=== PATIENT | male | born 1975 | race Caucasian/White ===

== ENCOUNTER → 2017-06-03 | Outpatient (CLI) | payer OTHER ==
[~2017-06-03] MED LIST: HYDROCODON-ACE1 EAC7 PO; HYDROCODONE-AP1 EAC6 PO; IBUPROFEN 800800 M1 PO; MOBIC15 MG PO; NABUMETONE PO; PIROXICAM20 MG PO
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
== END ==
LOC: M.PC 02:51
DX: M47.896 Other spondylosis, lumbar region (principal); I10 Essential (primary) hypertension; F11.20 Opioid dependence, uncomplicated

== ENCOUNTER → 2017-09-02 | Outpatient (CLI) | payer OTHER ==
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
== END ==
LOC: M.PC 00:32
DX: M47.27 Other spondylosis with radiculopathy, lumbosacral region (principal); G89.4 Chronic pain syndrome; M54.5 Low back pain; M25.522 Pain in left elbow; M25.521 Pain in right elbow

== ENCOUNTER → 2017-12-11 | Outpatient (CLI) | payer OTHER ==
--- NOTE | 2018-01-05 10:00 | PAINCON ---
[address] [address] PAIN MANAGEMENT CONSULTATION Name: SAUL PRITCHARD [facility] [id number] Admission: 12/11/17 Attend Phys: Brett Nicole MD Discharge: Date of : 77 Report #: [id number] THIS REPORT FOR: //name// CC: Chelsie Curry [employer] WORK[employer] Citlalli Nicole DATE OF SERVICE: 12/11/2017 FOLLOWUP COMPLAINT: Here for medications. Things are going really well. FOLLOWUP HISTORY: The patient is a 42-year-old gentleman who has been followed in the pain clinic. As you recall, he has a history of low back pain. He has undergone fusion of his back in the thoracolumbar area in 1997. 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 Finds that medication of hydrocodone and nonsteroidals are helpful. He is able to stay gainfully employed. He does not have any problems with his medication. He states that his work is somewhat hard and exhausting. He would like to continue with his medications. He has some pain that involves his elbows bilaterally. Notes that his pain score varies escorted to how much and how difficult job is that he is working on. He rates his pain as 2/10 at this point. He has had no complication from the medications. He is not having any GI complaints. He does not have any problems with confusion or any problems with his sensorium. He is able to think clearly. Feels that the medications definitely are helpful enabling him to remain gainfully employed. He keeps his medications in a guarded area. He is aware that opioid medications can be problematic and has seen the information in the media. Aware that narcotics can be addictive. He is aware that they can become less effective over a period of time secondary to tolerance. He would like to continue with the medications and has returned for renewal of his medications. ALLERGIES: No known drug allergies. CURRENT MEDICATIONS: Hydrocodone 5/325 one p.o. t.i.d., Mobic 15 mg daily. Medications used in the past ibuprofen/nabumetone 500 mg t.i.d. in the past. PAIN CLINIC ASSESSMENT/PQRS: 1. The patient has some osteoarthritic changes in his lower back. 2. Height 6 feet, weight 189 pounds, BMI is 25.7. 3. Vital signs: Blood pressure 122/82, heart rate 73, respiratory rate 16, room air saturation 97%, temperature 98.3. 4. Pain score 2/10. 5. Fall. The patient has not fallen in the last 3 months. 6. Blood thinner. The patient is not on a blood thinning medication. 7. History of hypertension. The patient is not being treated for hypertension. 8. Opiate therapy greater than 6 weeks. The patient gets his medication from one source[place] [address] PAIN MANAGEMENT CONSULTATION Name: SAUL PRITCHARD Room: [facility]#: [id number] Admission: 12/11/17 Attend Phys: Brett Nicole MD Discharge: Date of : 77 Report #: [id number] 9. Risk assessment tool, low risk for opioid use. 10. Functional assessment tool. 11. Recreational drug use. The patient denies use of recreational drugs. 12. Tobacco: The patient denies use of tobacco. 13. Alcohol: The patient denies use of alcoholic beverages. PHYSICAL EXAMINATION: GENERAL: The patient is a well-developed, well-nourished white male. Appears his stated age. He is alert and oriented x 3. His affect is appropriate. Speech is fluent. HEENT: Normocephalic, atraumatic. Extraocular eye muscles intact. Hearing is within normal limits. Mucous membranes are moist. Sclerae nonicteric. NECK: Without JVD, adenopathy or bruit. Muscle bulk is symmetric with upper muscle strength is judged to be 5/5. The patient has some soreness involving his elbows bilaterally. MUSCULOSKELETAL: Without significant scoliosis, kyphosis or lordosis. The patient has some low back pain and discomfort. He has muscle strength is judged to be 5/5 for the major muscle groups. Well-healed scar in the back area. IMPRESSION: 1. Lumbosacral spondylosis. 2. Chronic axial back pain. 3. Bilateral shoulder soreness/elbow pain. 4. History of right lateral epicondyle dose. 5. Chronic intractable pain treated with complex medical management. RECOMMENDATIONS: We discussed treatment options with the patient. Risks and benefits of opioid medication were again reviewed. The patient feels like the medications are working well. We reminded him of the possible complications of use of nonsteroidal anti-inflammatory medications. They can cause GI problems. Recommend the patient uses medication for as long as possible, but as brief time is possible. He will stop his medications if he notes some GI problems or complications. He will continue to keep his medications in a guarded area. He will call us if he has any problems with the medications. We would like to thank you for letting us participate in his care. We hope he continues to improve. A script for his medications of hydrocodone 5/325 one p.o. q. total of 90 and Meloxicam have been rewritten. <ELECTRONICALLY SIGNED> By: Brett Nicole MD 01/05/18 1000 [id number] 1746N. Shay Nicole MD /[facility]quelyn
== END ==
LOC: M.PC 01:46
DX: M47.897 Other spondylosis, lumbosacral region (principal); M79.629 Pain in unspecified upper arm; M25.522 Pain in left elbow; M25.521 Pain in right elbow; Z79.899 Other long term (current) drug therapy

== ENCOUNTER → 2018-03-05 | Outpatient (CLI) | payer OTHER ==
--- NOTE | ~2018-03-05 | PAINCON ---
[address] [address] PAIN MANAGEMENT CONSULTATION Name: SAUL PRITCHARD [facility] [id number] Admission: 03/05/18 Attend Phys: Brett Nicole MD Discharge: Date of : 77 Report #: [id number] THIS REPORT FOR: //name// CC: Chelsie Sullivan DATE OF SERVICE: 03/05/2018 FOLLOWUP: Here for medication renewal. HISTORY: The patient is a 42-year-old gentleman who has been followed in the pain clinic. 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 Has had some problems with his back in the past. He has undergone fusion of his back in the thoracolumbar area in 1997. 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 Finds his medications of hydrocodone, nonsteroidal medications, continue to be helpful. He left his truck in a work area. He did not have access to his medications for a few days. He did take couple of his 's hydrocodone 10/325 medication and found that they were more beneficial. He was wondering whether or not an increase in his medications from 5 mg p.o. t.i.d. to 10 mg p.o. t.i.d. would be an option. Denies any GI problems. Notes does not have any problems with his sensorium and is able to clearly. 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 States that he can do this easily without problem. He is aware of the problems with the opioid epidemic. Feels that overall his medications are helpful, but entertained the thought that may be an increase his medications might be beneficial. ALLERGIES: No known drug allergies. CURRENT MEDICATIONS: Hydrocodone 5/325 mg one p.o. t.i.d., Mobic 15 mg daily. PAIN CLINIC ASSESSMENT/PQRS: 1. The patient has some osteoarthritic changes in his lower back. 2. Height 6 feet, weight 195 pounds, BMI is 26.4. 3. Vital Signs: Blood pressure 142/81, heart rate 81, respiratory rate 16, room air saturation 97%. 4. Temperature 98.5. 5. Pain intensity 05/31. 6. Fall history: The patient has not fallen in the last 3 months. 7. Blood thinner. The patient is not on a blood thinning medication. 8. Hypertension. The patient has not been treated for hypertension. 9. Opioid greater than 6 weeks. The patient receives this medication from one source, the pain clinic. 10. Risk assessment tool, low for opioid use. 11. Functional assessment tool. 12. Recreational drug use. The patient [place] [address] PAIN MANAGEMENT CONSULTATION Name: SAUL PRITCHARD Room: [facility]#: [id number] Admission: 03/05/18 Attend Phys: Brett Nicole MD Discharge: Date of : 77 Report #: [id number] 13. Tobacco: The patient denies use of tobacco. 14. Alcohol: The patient uses alcoholic beverages rarely and weekly. PHYSICAL EXAMINATION: GENERAL: The patient is a well-developed, well-nourished white male. Appears his stated age. He is alert and oriented x 3. Affect is appropriate. Speech is slow. HEENT: Normocephalic, atraumatic. Extraocular eye muscles intact. Sclerae nonicteric. Mucous membranes are moist. NECK: Without adenopathy or JVD. EXTREMITIES: Muscle bulk and symmetry in the upper extremity is judged to be 5/5 for the major muscle groups. Has some soreness in the elbow area. MUSCULOSKELETAL: Without significant scoliosis, kyphosis or lordosis. The patient's muscle strength in the lower back is judged to be 5/5 for the major muscle groups. A well-healed scar in back. Has pain and discomfort, which is involving the low back area. IMPRESSION: 1. Lumbosacral spondylosis. 2. Chronic axial back pain. 3. Bilateral shoulder soreness with elbow pain. 4. History of right lateral epicondyle pain. 5. Chronic intractable pain involving use of complex medical management. RECOMMENDATIONS: We discussed treatment option with the patient. We again reviewed the patient's regimen with him. We discussed the use of opioid medications. We have discussed the problems with opioid medications, which could lead to addiction as well as less effectiveness secondary to chronic use because of development of tolerance. We explained to the patient that hydrocodone 10/325 mg or indeed more efficacious sometimes for pain control. He is at 5 mg. We explained to him that he is only 42 years of age. I explained to him the problems with the development of tolerance. At this juncture, we will continue with his current medication 5 mg p.o. t.i.d. If we need in the future we have given them the option to increase his medications, but at this juncture, we will continue this month with his medications at the current dose. A script for Mobic 15 mg 1 p.o. daily, [place] 5/325 mg one p.o. t.i.d. has been written. He will call us if he has any concerns. We would like to thank you for letting us participate in his care. We hope he continues to improve. By: 0921 1130N. Shay Nicole MD /[facility]
== END ==
LOC: M.PC 05:26
DX: M47.817 Spondylosis without myelopathy or radiculopathy, lumbosacral region (principal); G89.4 Chronic pain syndrome; M25.511 Pain in right shoulder; M25.512 Pain in left shoulder; Z79.899 Other long term (current) drug therapy

== ENCOUNTER → 2018-05-28 | Outpatient (CLI) | payer OTHER ==
--- NOTE | ~2018-05-28 | PAINCON ---
[facility] [address] [place] [address] PAIN MANAGEMENT CONSULTATION Name: SAUL PRITCHARD Room: [facility]#: [id number] Admission: Attend Phys: Brett Nicole MD Discharge: Date of : 77 Report #: [id number] THIS REPORT FOR: //name// CC: Citlalli Nicole DATE OF SERVICE: 05/28/2018 CHIEF COMPLAINT: Here for medication renewal. HISTORY: The patient is a 42-year-old gentleman who has been followed in the Pain Clinic. 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 He is not having any complaints at this juncture. He feels that the weather winter has been somewhat brittle. He has been working outside. Has had a fusion in his low back in the thoracolumbar area in 1997. Continues to find his medications enable him to be gainfully employed. He rates his pain as 2/10 at this point. About 50% improved with use of medications. Finds that Mobic and [place] are beneficial. Notes that walking, sitting, standing and activities can exacerbate it, medications as well as rest rooms are helpful. Denies any problems since we saw him last. He is able to think clearly. Medications are not clouding, his sensorium. He does work with power tools. ALLERGIES: No known drug allergies. CURRENT MEDICATIONS: Hydrocodone 5/325 one p.o. t.i.d., Mobic 15 mg daily. PAIN CLINIC ASSESSMENT/PQRS: 1. The patient has some marked osteoarthritic changes in his lower back. 2. Height 6 feet, weight 201 pounds, BMI is 27.3. 3. Vital signs: Blood pressure 135/78, heart rate 69, respiratory rate 18, room air saturation 97%, temperature 98. 4. Pain intensity /10. 5. The patient has not fallen in the last 3 months. 6. Blood thinner. The patient is not on a blood thinning medication. 7. Hypertension. The patient has not been treated for hypertension. 8. Opioid greater than 6 weeks. The patient receives [facility]. 9. Risk assessment tool, low for opioid use. 12. Functional assessment tool. 13. Recreational drug use. The patient denies use of recreational drugs. 14. Tobacco: The patient denies use of tobacco. 15. Alcohol: The patient denies use of alcoholic beverages other than on occasion. PHYSICAL EXAMINATION: GENERAL: The patient is a well-developed, well-[place] [address] PAIN MANAGEMENT CONSULTATION Name: SAUL PRITCHARD Room: [facility]#: [id number] Admission: Attend Phys: Brett Nicole MD Discharge: Date of : 77 Report #: [id number] his stated age. He is alert and oriented x 3. His affect is appropriate. Speech is fluent. HEENT: Normocephalic, atraumatic. Extraocular eye muscles intact. Sclerae nonicteric. Mucous membranes are moist. NECK: Without adenopathy or JVD. HEART: Regular rate. Bowel sounds present. Muscles symmetry on upper extremity judged to be 5/5 for the major muscle groups. The patient has some soreness in his elbows. The patient without significant scoliosis, kyphosis or lordosis. Lower extremity muscle strength is judged to be 5/5 for the major muscle groups in the lower extremity. Well-healed scar in the back area. IMPRESSION: 1. Lumbosacral spondylosis. 2. Chronic axial back pain. 3. Bilateral shoulders soreness and elbow pain. 4. History of right lateral epicondylitis. 5. Chronic intractable pain involving complex medical management. RECOMMENDATIONS: We discussed treatment options with the patient. He feels his medications are helpful. He is taking them as prescribed. He is able to stay gainfully employed. We again reviewed the risks and benefits of opioid medications, which could include development of tolerance as well as development of dependence. Overall, he feels that things are going reasonably well. Medications are helpful and he would like to continue. Keeps his medications in a guarded area. We would like to thank you for letting us participate in his care. We hope he continues to improve. By: [id number]. Shay Nicole MD /jacquelyn
== END ==
LOC: M.PC 08:10
DX: M47.897 Other spondylosis, lumbosacral region (principal); M25.529 Pain in unspecified elbow; G89.4 Chronic pain syndrome; I10 Essential (primary) hypertension; M77.11 Lateral epicondylitis, right elbow; M25.512 Pain in left shoulder; M25.511 Pain in right shoulder; Z79.899 Other long term (current) drug therapy

== ENCOUNTER → 2018-08-20 | Outpatient (CLI) | payer OTHER ==
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
== END ==
LOC: M.PC 04:46
DX: M54.5 Low back pain (principal); G89.4 Chronic pain syndrome; Z79.891 Long term (current) use of opiate analgesic; Z79.899 Other long term (current) drug therapy

== ENCOUNTER → 2018-11-12 | Outpatient (CLI) | payer OTHER ==
[~2018-11-12] MED LIST changes: +AMITRIPTYLINE H10 M3 PO; +MEDROLDOSEPACK PO
== END ==
LOC: M.PC 02:11
DX: M25.519 Pain in unspecified shoulder (principal)

== ENCOUNTER → 2019-02-04 | Outpatient (CLI) | payer OTHER | LOC: M.PC 05:11 | DX: M54.5 Low back pain (principal) ==

== ENCOUNTER → 2019-04-29 | Outpatient (CLI) | payer OTHER ==
--- NOTE | 2019-05-04 08:37 | PAINCON ---
[facility] [address] [place] [address] PAIN MANAGEMENT CONSULTATION Name: SAUL PRITCHARD [id number] Admission: 04/29/19 Attend Phys: Brett Nicole MD Discharge: Date of : 77 Report #: [id number] THIS REPORT FOR: //name// cc: Citlalli Dozier Linda J. DO THIS REPORT FOR: //name// CC: Citlalli Sullivan DATE OF SERVICE: 04/29/2019 CHIEF COMPLAINT: Low back pain is helped with the medications. HISTORY: The patient is a 43-year-old gentleman who has been followed in the pain clinic because of chronic back pain. 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 This is winter time. He is not as active. Overall, he feels that his pain medications are working relatively well. He rates his pain as a 1/10. Continues to find Mobic and hydrocodone efficacious. He is about 50% improved with use of these medications. Does note some increased discomfort with activity as well as with sitting, bending and lifting. ALLERGIES: No known drug allergies. CURRENT MEDICATIONS: Hydrocodone 5/325 one p.o. t.i.d., Mobic 15 mg, Elavil 10 mg at bedtime. PAIN CLINIC ASSESSMENT AND PQRS: 1. The patient has had a fusion in the lower back. He does have some discomfort in his thoracolumbar area. 2. Height 6 feet, weight 206 pounds, BMI is 28.2. 3. Vital Signs: Blood pressure 130/77, heart rate 102, respiratory rate 16, room air saturation 98%, temperature 98.2. 4. Pain intensity 04/02. 5. Fall history: The patient has not fallen in the last 3 months. 6. Blood thinner. The patient is not on a blood thinning medication. 7. Hypertension. The patient is not being treated for hypertension. 8. Opioids greater than 6 weeks. The patient receives medication from [facility]. 9. Risk assessment tool, low for opioid use. 10. Functional assessment tool. 11. Recreational drug use. The patient denies use of recreational drugs. 12. Tobacco: The patient denies use of tobacco. 13. Alcohol: The patient denies regular use of alcoholic beverages [place] [address] PAIN MANAGEMENT CONSULTATION Name: FRANCHESKASAUL EDDYN Room: [facility]#: [id number] Admission: 04/29/19 Attend Phys: Brett Nicole MD Discharge: Date of : 77 Report #: [id number] PHYSICAL EXAMINATION: GENERAL: The patient is a well-developed, well-nourished white male. Appears his stated age. He is alert and oriented x 3. His affect is appropriate. Speech is fluent. HEENT: Normocephalic, atraumatic. Extraocular eye muscles intact. Sclerae nonicteric. Mucous membranes are moist. NECK: Without adenopathy or JVD. HEART: Regular rate. ABDOMEN: Nontender. Bowel sounds present. LUNGS: Clear to auscultation. EXTREMITIES: Upper extremity muscle strength judged to be 5/5 for the major muscle groups in the upper extremity. Lower extremity muscle strength judged to be 5/5 for the major muscle groups in the lower extremity. The patient without significant scoliosis, kyphosis or lordosis. IMPRESSION: 1. Lumbosacral spondylosis. 2. Chronic axial back pain. 3. Bilateral shoulder pain. 4. History of right lateral epicondylitis. 5. Chronic intractable pain with complex medical management using opioids. RECOMMENDATION: The patient feels his medications are helpful. He is not as active as he is in the summertime. He does note that his medications continue to be helpful. He is not having any complications. He is able to think clearly. 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 He is aware that opioid medications can become less effective as time goes on. He has taken his medication as prescribed. Keeps his medications in a guarded area. He is not having any problems with Mobic. If he starts to have GI complaints, he will stop taking the nonsteroidal anti-inflammatory medication, Mobic. He feels that the Elavil medication is helpful at bedtime as well. We would like to thank you for letting us participate in his care. A script for his medications has been rewritten. He will follow up in the future as needed. We would like to thank you for letting us participate in his care. We hope he continues to improve. <ELECTRONICALLY SIGNED> By: Brett Nicole MD 05/04/19 0837 [id number]. Shay Nicole MD /jacquelyn
== END ==
LOC: M.PC 08:00
DX: M47.817 Spondylosis without myelopathy or radiculopathy, lumbosacral region (principal); M25.512 Pain in left shoulder; M25.511 Pain in right shoulder; G89.29 Other chronic pain; Z79.891 Long term (current) use of opiate analgesic

== ENCOUNTER → 2019-08-19 | Outpatient (CLI) | payer OTHER ==
--- NOTE | ~2019-08-19 | PAINCON ---
[address] [address] PAIN MANAGEMENT CONSULTATION Name: SAUL PRITCHARD Room: [facility]#: [id number] Admission: 08/19/19 Attend Phys: Brett Nicole MD Discharge: Date of : 77 Report #: [id number] THIS REPORT FOR: //name// cc: Citlalli Dozier Linda J. DO ~ THIS REPORT FOR: //name// CC: DEL Mars DATE OF SERVICE: 08/19/2019 CHIEF COMPLAINT: Mid and low back pain. HISTORY: The patient is a 43-year-old gentleman who has been followed in the pain clinic because of chronic low back pain. 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 He finds that his medications are helpful. He is able to perform his job without problem. He does not have any clouding of his sensorium. He is able to focus. He is able to do his job without concern of his medications interfering. He feels that his pain is about 50% improved with use of his medications. Things are going relatively well. He rates his pain as 1/10. Pain involves hisr shoulder, elbow joints. He has a very physical job. By the end of the day, he feels that these are really hurting. Finds the medications are beneficial. ALLERGIES: No known drug allergies. CURRENT MEDICATIONS: Hydrocodone 5/325 1 p.o. t.i.d., Mobic 15 mg daily, Elavil 10 mg at bedtime. PAIN CLINIC ASSESSMENT AND PQRS: 1. The patient has undergone fusion in his low back. He does have some discomfort in the thoracolumbar area. Notes some pain, which is worse at the end of the day. 2. Height is 6 feet 0, weight 203 pounds, BMI is 26.8. 3. Vital Signs: Blood pressure 140/97, heart rate 89, respiratory rate 16, room air saturation 98%, temperature 97.3. 4. Pain intensity, 04/02. 5. Fall history. The patient has not fallen in the last 3 months. 6. Blood thinner. The patient is not on a blood thinning medication. 7. Opioids greater than 6 weeks. The patient received medication from the pain clinic. 8. Risk assessment tool, low for opioid use. 9. Functional assessment tool. 10. Recreational drug [place] [address] PAIN MANAGEMENT CONSULTATION Name: SAUL PRITCHARD Room: [facility]#: [id number] Admission: 08/19/19 Attend Phys: Brett Nicole MD Discharge: Date of : 77 Report #: [id number] 11. Tobacco. The patient denies. 12. Alcohol. The patient occasionally drinks alcoholic beverages. PHYSICAL EXAMINATION: GENERAL: The patient is a well-developed, well-nourished, white male. He appears his stated age. He is alert and oriented x 3. His affect is appropriate. Speech is fluent. HEENT: Normocephalic, atraumatic. Extraocular eye muscles intact. Sclerae nonicteric. Mucous membranes are moist. NECK: Without adenopathy or JVD. HEART: Regular rate. ABDOMEN: Nontender. Bowel sounds present. LUNGS: Generally clear. EXTREMITIES: Upper extremity muscle strength judged to be 5/5 for the major muscle groups in the upper extremity. The patient's muscle strength in lower extremities is 5/5. The patient without significant scoliosis, kyphosis or lordosis. IMPRESSION: 1. Lumbosacral spondylosis. 2. Chronic axial back pain. 3. Bilateral shoulder pain. 4. History of right lateral epicondylitis. 5. Chronic intractable pain treated with complex medical management using opioids. RECOMMENDATIONS: We discussed treatment options with the patient. At this juncture, we will continue with his medications. He feels that the medications are helpful. He has had no complication from their use. He is able to perform his activities of daily living without problems. He is aware that opioid medications can become problematic for certain people. He has not shown any signs of addiction. He takes his medications as prescribed. He feels that these medications enable him to continue with his high level of work. He does have a very physical job. He will continue with the meloxicam. He will stop taking the medication should he notice some GI complaints. He was using amitriptyline. He feels that this medication is helpful at bedtime. Oftentimes these medications can be helpful as well and help in control pain. A script for hydrocodone 5/325 1 p.o. every 4-6 hours have been written. The patient will call us if he has any concerns. We would like to thank you for letting us participate in his care. We hope he continues to improve. By: [id number]. Shay Nicole MD /NIRAJ
== END ==
LOC: M.PC 04:21
DX: M47.817 Spondylosis without myelopathy or radiculopathy, lumbosacral region (principal); M25.511 Pain in right shoulder; M25.512 Pain in left shoulder; Z87.39 Personal history of other diseases of the musculoskeletal system and connective tissue; F11.20 Opioid dependence, uncomplicated; Z79.899 Other long term (current) drug therapy

== ENCOUNTER → 2019-11-09 | Outpatient (CLI) | payer OTHER ==
--- NOTE | ~2019-11-09 | PAINCON ---
[facility] [address] [place] [address] PAIN MANAGEMENT CONSULTATION Name: SAUL PRITCHARD Room: [facility]#: [id number] Admission: 11/09/19 Attend Phys: Brett Nicole MD Discharge: Date of : 77 Report #: [id number] THIS REPORT FOR: //name// cc: Citlalli Dozier Linda J. DO THIS REPORT FOR: //name// CC: Citlalli Sullivan DATE OF SERVICE: 11/09/2019 CHIEF COMPLAINT: "Things are going okay. HISTORY: The patient is a 43-year-old gentleman who has been followed in the pain clinic because of chronic low back pain. He returns to the pain clinic for renewal of his medications. Things are going reasonably well. He rates his back pain today as a 4/10. He feels that the medications are working reasonably well and would like to continue their use. He does not have any problems with mentation. He is able to perform all of his jobs without concerns. He is able to think clearly. He is not operating heavy machinery any difficulty. He continues to have some pain in his shoulder as well as his elbows. 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 ALLERGIES: No known drug allergies. CURRENT MEDICATIONS: Hydrocodone 5/325 one p.o. t.i.d., Mobic 15 mg daily, and Elavil 10 mg at bedtime. PAIN CLINIC ASSESSMENT/PQRS: 1. The patient has undergone fusion in his low back. He has had some discomfort in the thoracolumbar area. He notes his pain is quite problematic, particularly at the end of the day after working in construction. 2. Height 6 feet 0, weight 203 pounds, BMI is 26.8. 3. Vital Signs: Blood pressure is 147/97, heart rate 96, respiratory rate 18, room air saturation is 97%, temperature 98.2. 4. Pain intensity is 4/10. 5. Fall history: The patient has not fallen in the last 3 months. 6. Blood thinner. The patient is not on a blood thinning medication. 7. Opioids greater than 6 weeks. The patient receives medication from the pain clinic. 8. Risk assessment tool, low for opioid use. 9. Functional assessment tool, reviewed. 10. Recreational drug use. The patient denies. 11. Tobacco: [place] [address] PAIN MANAGEMENT CONSULTATION Name: SAUL PRITCHARD Room: [facility]#: [id number] Admission: 11/09/19 Attend Phys: Brett Nicole MD Discharge: Date of : 77 Report #: [id number] 12. Alcohol: The patient occasionally drinks alcoholic beverages. PHYSICAL EXAMINATION: GENERAL: The patient is a well-developed, well-nourished white male. Appears his stated age. He is alert and oriented x 3. His affect is appropriate. Speech is fluent. HEENT: Normocephalic, atraumatic. Extraocular eye muscles intact. Sclerae nonicteric. Mucous membranes are moist. The patient is wearing face covering. NECK: Without adenopathy or JVD. HEART: Regular rate. ABDOMEN: Nontender. Bowel sounds present. LUNGS: Clear. EXTREMITIES: Upper extremity muscle strength judged to be 5/5 for the major muscle groups in the upper extremity. The patient's muscle strength in lower extremities is 5/5. The patient without significant scoliosis, kyphosis, or lordosis. IMPRESSION: 1. Lumbosacral spondylosis. 2. Chronic axial back pain. 3. Bilateral shoulder pain. 4. History of right lateral epicondylitis. 5. Chronic intractable pain treated with complex medical management using opioids. RECOMMENDATIONS: We discussed treatment options with the patient. At this juncture, he will continue with his medications. He is able to continue to be gainfully employed. He is not having significant problems with mentation. He is able to perform his jobs easily. His sensorium remains clear. He will continue with his medications. A script for his medications has been provided. The patient will continue with amitriptyline tablets. He will take 1 at bedtime. He will continue with hydrocodone 5/325 one p.o. total of 120 tablets per month. He will also continue with meloxicam. He will note his GI status. If he should note increased irritation, he will discontinue use of meloxicam. We would like to thank you for letting us participate in his care. We hope he continues to improve. By: [id number]. Shay Nicole MD /NIRAJ
== END ==
LOC: M.PC 12:22
PROVIDERS: ATTEND Anesthesiology Pain Medicine
DX: M47.817 Spondylosis without myelopathy or radiculopathy, lumbosacral region (principal); M25.512 Pain in left shoulder; M25.511 Pain in right shoulder; M54.9 Dorsalgia, unspecified; M77.11 Lateral epicondylitis, right elbow; G89.29 Other chronic pain

== ENCOUNTER → 2020-02-01 | Outpatient (CLI) | payer OTHER ==
--- NOTE | 2020-02-24 14:42 | PAINCON ---
[facility] [address] [place] [address] PAIN MANAGEMENT CONSULTATION Name: SAUL PRITCHARD Room: [facility]#: [id number] Admission: 02/01/20 Attend Phys: Brett Nicole MD Discharge: Date of : 77 Report #: [id number] THIS REPORT FOR: //name// cc: Citlalli Dozier Linda J. DO ~ CC: Citlalli Sullivan DATE OF SERVICE: 02/01/2020 CHIEF COMPLAINT: Low back pain. HISTORY: The patient is a 44-year-old gentleman who has been followed in the Pain Clinic because of chronic low back discomfort. He has undergone epidural steroid injections in the past. He rates his pain today as 1/10. Overall, things are going reasonably well with him. Notes that the pain is located in the mid to low back area. He has had no significant changes since the last visit. He feels that his medications of meloxicam and [place] are helpful. Elavil is beneficial at bedtime. He would like to continue with this current regimen. Notes his pain is worse with activity, bending and lifting. 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 ALLERGIES: No known drug allergies. CURRENT MEDICATIONS: Hydrocodone 5/325 one p.o. t.i.d., Mobic 15 mg daily, Elavil 10 mg at bedtime. PAIN CLINIC ASSESSMENT/PQRS: 1. The patient has undergone fusion in his low back. He has had some discomfort in the thoracolumbar area. The patient notes that the pain is 1/10 at this point. 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 2. Height 6 feet 0, weight 205 pounds, BMI 28.1. 3. Vital signs: Blood pressure 145/92, heart rate 83, respiratory rate 16, room air saturation 98%. 4. Pain intensity, 1/10. 5. Fall history: The patient has not fallen since we saw him last. 6. Blood thinner. The patient is not on a blood thinning medication. 7. Hypertension. The patient is not being treated for hypertension. 8. Opioids. The patient receives medication from the Pain Clinic. 9. Risk assessment tool, low for opioid use. 10. Functional assessment tool reviewed. 11. Recreational drug use: The patient denies. 12. Tobacco: The patient denies. 13. Alcohol. The [place] [address] PAIN MANAGEMENT CONSULTATION Name: SAUL PRITCHARD Evelia Room: [facility]#: [id number] Admission: 02/01/20 Attend Phys: rBett Nicole MD Discharge: Date of : 77 Report #: [id number] PHYSICAL EXAMINATION: GENERAL: The patient is a well-developed, well-nourished white male. Appears his stated age. He is alert and oriented x 3. His affect is appropriate. Speech is fluent. HEENT: Normocephalic, atraumatic. Extraocular eye muscles intact. The patient is wearing a facial covering. NECK: Without adenopathy or JVD. HEART: Regular rate. ABDOMEN: Nontender. Bowel sounds present. LUNGS: Clear. EXTREMITIES: Upper extremity muscle strength is judged to be 5/5 for the major muscle groups in the upper extremity. The patient has pain in the lower portion of his back. Muscle strength in the lower extremities is judged to be 5/5 for the major muscle groups. The patient is without significant scoliosis, kyphosis or lordosis. IMPRESSION: 1. Lumbosacral spondylosis. 2. Chronic axial back pain. 3. Bilateral shoulder pain. 4. History of right lateral epicondylitis. 5. Chronic intractable pain treated with complex medical management using opioids. RECOMMENDATIONS: We discussed treatment options with the patient. At this juncture, we will continue with his medications. He feels the medications continue to be helpful. He is aware that opioid medications for some people can be problematic. Some people have developed tolerance. Some people have developed addictions. The patient is not showing signs of addiction. He finds these medications enable him to continue to do his work. He is able to operate machinery without problems. He is able to think clearly. He has a clear sensorium with the use of his medications. We will continue with his medications of hydrocodone 5 mg 1 p.o., total of 120 tablets per month. He will also continue with meloxicam and nonsteroidal anti-inflammatory medications. He will give attention to his GI tract. Should he note worsening of GI problems, he will stop the meloxicam. We would like to thank you for letting us participate in his care. The patient will return in 3 months. <ELECTRONICALLY SIGNED> By: Brett Nicole MD 02/24/20 [id number]. Shay Nicole MD /nt
== END ==
LOC: M.PC 07:37
PROVIDERS: ATTEND Anesthesiology Pain Medicine
DX: M54.5 Low back pain (principal); I10 Essential (primary) hypertension; Z79.899 Other long term (current) drug therapy

== ENCOUNTER → 2020-04-25 | Outpatient (CLI) | payer OTHER | LOC: M.PC 07:30 | PROVIDERS: ATTEND Anesthesiology Pain Medicine | DX: M47.817 Spondylosis without myelopathy or radiculopathy, lumbosacral region (principal); M25.511 Pain in right shoulder; M25.512 Pain in left shoulder; M43.27 Fusion of spine, lumbosacral region; G89.29 Other chronic pain; Z88.8 Allergy status to other drugs, medicaments and biological substances; Z79.899 Other long term (current) drug therapy ==

== ENCOUNTER → 2020-07-20 | Outpatient (CLI) | payer OTHER ==
[~2020-07-20] MED LIST changes: +AMITRIPTYLINE H10 M1 PO
== END ==
LOC: M.PC 07-18 08:00
PROVIDERS: ATTEND Anesthesiology Pain Medicine
DX: M43.25 Fusion of spine, thoracolumbar region (principal); M47.817 Spondylosis without myelopathy or radiculopathy, lumbosacral region; M25.511 Pain in right shoulder; M25.512 Pain in left shoulder; G89.29 Other chronic pain

== ENCOUNTER → 2020-10-17 | Outpatient (CLI) | payer OTHER | LOC: M.PC 10-12 08:00 | PROVIDERS: ATTEND Anesthesiology Pain Medicine | DX: G89.29 Other chronic pain (principal); M19.90 Unspecified osteoarthritis, unspecified site; M47.817 Spondylosis without myelopathy or radiculopathy, lumbosacral region; Z68.28 Body mass index [BMI] 28.0-28.9, adult; Z98.1 Arthrodesis status; Z79.891 Long term (current) use of opiate analgesic; Z79.899 Other long term (current) drug therapy ==